=== PATIENT | male | born 1950 | race Caucasian/White ===

== ENCOUNTER → 2019-05-20 08:55 | Outpatient (CLI) | payer MEDICARE, OTHER, SELFPAY ==
--- NOTE | 2019-05-20 | DI.RAD.S_ITS ---
PROCEDURE: FL BARIUM SWALLOW INDICATIONS: Other dysphagia. COMPARISON: None. FINDINGS: Function: There are mild tertiary contractions with episodes of proximal escape. There is mild gastroesophageal reflux. There is normal transit of a calibrated barium tablet through the esophagus into the stomach. Morphology: Air-contrast images demonstrate normal mucosal morphology. Single contrast views show no esophageal strictures, extrinsic mass effects, or diverticula. Limited images of the stomach demonstrate normal appearance. IMPRESSION: Findings suggestive of mild esophageal dysmotility with mild gastroesophageal reflux. Clinical correlation recommended. Consider endoscopy if there is continued clinical concern. Dictated by: Tomi Ty M.D. on 05/20/2019 at 15:39 Approved by: Tomi Ty M.D. on 05/20/2019 at 15:41
== END ==
PROVIDERS: PCP Family Medicine; Visit Provider Otolaryngology
DX: R13.19 Other dysphagia (principal); K21.9 Gastro-esophageal reflux disease without esophagitis; R49.0 Dysphonia
CPT/HCPCS: 74220

== ENCOUNTER → 2020-07-12 09:06 | Outpatient (CLI) | payer MEDICARE, OTHER, SELFPAY ==
[2020-07-13 20:14] LABS: COVID19 Sendout Not Detected (Not Detect)
== END ==
PROVIDERS: PCP Family Medicine; Visit Provider Physician Assistant
DX: Z11.59 Encounter for screening for other viral diseases (principal)
CPT/HCPCS: 87635

== ENCOUNTER 2020-07-15 08:44 | Day surgery (SDC) | payer MEDICARE, OTHER, SELFPAY ==
--- NOTE | 2020-07-15 | PATH_ITS ---
[facility] Accession Number: [id number] . 01 Material submitted: . PART A: colon - TRANSVERSE COLON POLYP PART B: colon - CECAL COLON POLYP PART C: colon - ASCENDING COLON POLYP . 01 Clinical history: . SDC . 02 Diagnosis: A. Transverse Colon, Polyp: Tubular adenoma. . B. Cecum, Polyp: Tubular adenoma. Additional step sections examined. . C. Ascending Colon, Polyp: Fragments of sessile serrated adenoma and fragments of tubular adenoma; please see comment. Additional step sections examined. MRV 07/21/2020 1313 Local . 02 Comment: C. Sections are of multiple distinct fragments of sessile serrated adenoma and tubular adenoma. No cytologic dysplasia is seen in the serrated fragments. These findings are suggestive of sampling of distinct adjacent lesions, but the possibility of a sessile serrated adenoma with low-grade cytologic dysplasia cannot be entirely excluded. Correlation with clinical and endoscopic findings are required to make this distinction. . 02 Electronically signed: . Gopi Elizabeth MD, PhD, Pathologist NPI- [id number] . 01 Gross description: . A. Received in formalin, labeled transverse colon polyp, and consists of two robbins fragments of soft tissue measuring 0.5 x 0.4 x 0.3 cm in aggregate. The specimen is entirely submitted in cassette A1. B. Received in formalin, labeled cecal polyp, and consists of two robbins fragments of soft tissue measuring 0.5 x 0.4 x 0.3 cm in aggregate. The specimen is entirely submitted in cassette B1. C. Received in formalin, labeled ascending colon polyp, and consists of multiple robbins-pink fragments of soft tissue measuring 1.2 x 1.0 x 0.3 cm in aggregate. The specimen is entirely submitted in cassette C1. ([id number]) /MRV 07/16/2020 1547 Local . 02 Pathologist provided ICD-10: D12.0, D12.2, D12.3 . 02 CPT . 959396, 305390, 925407 Performed at: 01 [facility] [address] [id number] MD Reinaldo Leahy MD Phone: [phone] Performed at: 02 [facility] [address] [place] [id number] MD Autumn Cooper MD Phone: [phone]
--- NOTE | 2020-07-15 08:54 | PM.OP.ENDO ---
Operative Date/Time/Diagnoses Date of procedure: 07/15/20 Time of procedure: 08:28 Procedure Notes Procedure in detail: Surgeon: Merline Godinez DO Procedure: Colonoscopy with polypectomy Preoperative diagnosis: 1. History of diverticulitis 2. Screening colonoscopy Postoperative diagnosis: 1. 7 mm cecal polyp 2. 5 mm ascending colon 3. 7 mm sigmoid polyp 4. Scattered diverticulosis throughout the entire colon 5. Grade 1 internal hemorrhoids Medications: Conscious sedation using 4 mg IV of Midazolam and 125 mcg IV of Fentanyl Preanesthesia Assessment An H and P was performed/updated and the Px?s ASA class is 2. The procedure was discussed in detail with the patient. The potential risks and complications including infection, bleeding, missed lesions, perforation, need for surgery in case of perforation, prolonged hospital stay, and were explained. A brief question and answer period was allotted and once all questions were answered, informed consent was obtained. The patient was brought back to the procedure room and placed on standard monitoring. The patient?s vital signs were monitored continuously throughout the entire procedure. Prior to starting, a timeout was performed to confirm the patient?s identity, allergies, medications, and procedure. Procedure in detail The patient was placed in left lateral decubitus position and once adequate sedation was obtained a MIGUEL ÁNGEL was performed. The digital rectal examination did not reveal any palpable lesions. The tip of the colonoscope was placed in the anal canal and advanced without difficulty all the way to the cecum which was identified by the appendiceal orifice and the ileocecal valve. Careful examination of all armstrong of the colon was performed with irrigation of any residual stool. Second pass evaluation of the ascending colon was completed. 7 mm polyp in the cecum removed with cold snare, 5 mm polyp in the ascending colon removed with cold snare, 7 mm polyp in the sigmoid colon removed with cold snare. Scattered diverticulosis noted throughout the entire colon with greatest concentration in the sigmoid colon. Grade 1 internal hemorrhoids were noted on retroflexion. The patient tolerated the procedure well and will be brought back to the recovery area to be discharged once criteria are met. The prep was judged to be good/excellent and adequate to identify polyps less than 5 mm. The withdrawal time was 9min. The total physician intraservice time was 20min. Complications There were no complications and estimated blood loss was minimal. Recommendations: Resume previous diet -high-fiber diet Continue outPx medications Follow up pathology results Repeat colonoscopy based on pathology results An emergency contact number was given to the patient for any complications related to the procedure
[2020-07-15 09:11] VITALS: BP 153/70; PULSE 51; RESP 16; TEMP 36.8; O2SAT 96; BMI 37.2
--- NOTE | 2020-07-15 10:16 | PM.HP.1 ---
History of Present Illness History of Present Illness Date Patient Seen: 07/15/20 Time Patient Seen: 10:16 Chief complaint: SDC Narrative: Patient is a very pleasant 69-year-old male who presented for colonoscopy. He was last evaluated on June 11, 2020 denies any changes to his medications or medical history since that time. He does have a personal history of colon polyps and is due for surveillance. Patient History Family & Social History Social History: household members spouse Tobacco & Substance use: Smoking Status Never smoker alcohol intake former Substance Use Type does not use Meds Home Medications and Allergies Home Medications Medication Instructions Recorded Confirmed Type chromium picolinate 200 mcg PO Q DAY #0 09/13/17 07/15/20 History levothyroxine [Synthroid] 125 mcg PO QAM #0 09/13/17 07/15/20 History magnesium citrate 1.7 gm PO Q DAY #0 09/13/17 07/15/20 History multivitamin [Multiple Vitamins] 1 tab PO QDAY #0 09/13/17 07/15/20 History omega 0-yre-vth-fish oil [Fish Oil] 1,200 mg PO Q DAY #0 09/13/17 07/15/20 History amlodipine 10 mg PO DAILY 07/15/20 07/15/20 History aspirin 81 mg PO DAILY 07/15/20 07/15/20 History losartan 100 mg PO DAILY 07/15/20 07/15/20 History Allergies Allergy/AdvReac Type Severity Reaction Status Date / Time No Known Drug Allergies Allergy Verified 07/15/20 08:04 Review of Systems Review of Systems ROS: Yes All systems reviewed with the patient and are negative except as otherwise documented Exam Vital Signs (past 8 hours): - 07/15/20 09:11 Temperature 98.2 F Pulse Rate 51 L Respiratory Rate 16 Blood Pressure 153/70 H Pulse Oximetry 96 Oxygen Delivery Method Room Air Const General: cooperative, healthy appearing, comfortable, well developed and well groomed Nutritional Appearance: average body habitus HENMT Head: normocephalic and atraumatic Resp Effort & Inspection: normal respiratory effort and able to speak in complete sentences Auscultation: clear to auscultation bilaterally Cardio Rate: regular rate Rhythm: regular rhythm Heart Sounds: S1 normal and S2 normal GI Palpation: soft and No tender Auscultation: normal bowel sounds Extrem Right lower extremity: no edema Left lower extremity: no edema Assessment & Plan Assessment & Plan narrative: 1. Personal history colon polyps Colonoscopy today, further recommendations to follow
[2020-07-15] MEDS: fentaNYL 250 MCG/5 ML INJ IV (10:19)
[2020-07-15] MEDS: MIDAZOLAM 5 MG/5 ML VIAL IV (10:19)
[2020-07-15 10:54] VITALS: BP 127/56; PULSE 52; RESP 19; TEMP 36.9; O2SAT 97
--- NOTE | 2020-07-15 10:55 | PM.OP.ENDO ---
Operative Date/Time/Diagnoses Date of procedure: 07/15/20 Time of procedure: 10:19 Procedure Notes Procedure in detail: Surgeon: Merline Godinez DO Procedure: Colonoscopy with polypectomy Preoperative diagnosis: 1. Personal history colon polyps Postoperative diagnosis: 1. 7 mm transverse colon 2. 3 mm polyp in the cecum 3. Three polyps ranging from 3-5 mm found in the ascending colon 4. Sigmoid diverticulosis 5. Grade 1 internal hemorrhoids Medications: Conscious sedation using 4 mg IV of Midazolam and 100 mcg IV of Fentanyl Preanesthesia Assessment An H and P was performed/updated and the Px?s ASA class is 2. The procedure was discussed in detail with the patient. The potential risks and complications including infection, bleeding, missed lesions, perforation, need for surgery in case of perforation, prolonged hospital stay, and were explained. A brief question and answer period was allotted and once all questions were answered, informed consent was obtained. The patient was brought back to the procedure room and placed on standard monitoring. The patient?s vital signs were monitored continuously throughout the entire procedure. Prior to starting, a timeout was performed to confirm the patient?s identity, allergies, medications, and procedure. Procedure in detail The patient was placed in left lateral decubitus position and once adequate sedation was obtained a MIGUEL ÁNGEL was performed. The digital rectal examination did not reveal any palpable lesions. The tip of the colonoscope was placed in the anal canal and advanced without difficulty all the way to the cecum which was identified by the appendiceal orifice and the ileocecal valve. Careful examination of all armstrong of the colon was performed with irrigation of any residual stool. Second pass of the ascending colon was completed. 7 mm transverse colon -removed with cold snare 3 mm polyp in the cecum -removed with Jumbo forceps Three polyps ranging from 3-5 mm found in the ascending colon -2 were removed with Jumbo forceps, 1 was removed with cold snare Sigmoid diverticulosis Grade 1 internal hemorrhoids The patient tolerated the procedure well and will be brought back to the recovery area to be discharged once criteria are met. The prep was judged to be good/excellent and adequate to identify polyps less than 5 mm. The withdrawal time was 14min. The total physician intraservice time was 28min. Complications There were no complications and estimated blood loss was minimal. Recommendations: Resume high-fiber diet Continue outPx medications Follow up pathology results Repeat colonoscopy will be determined after review of pathology report An emergency contact number was given to the patient for any complications related to the procedure
[2020-07-15 10:59] VITALS: BP 140/68; PULSE 53; RESP 16; O2SAT 98
[2020-07-15 11:04] VITALS: BP 125/65; PULSE 52; RESP 13; O2SAT 98
[2020-07-15 11:09] VITALS: BP 126/59; PULSE 46; RESP 18; TEMP 36.7; O2SAT 97
== END 2020-07-15 11:28 | disposition home or self-care (01) ==
PROVIDERS: PCP Family Medicine; Referring Provider Family Medicine; Visit Provider Student in an Organized Health Care Education/Training Program
PROC: 0DJD8ZZ Inspection of Lower Intestinal Tract, Via Natural or Artificial Opening Endoscopic (ICD-10-PCS; CPT 45378; principal; 2020-07-15 10:00)
DX: Z12.11 Encounter for screening for malignant neoplasm of colon (principal); Z86.010 Personal history of colon polyps; K57.30 Diverticulosis of large intestine without perforation or abscess without bleeding; K64.0 First degree hemorrhoids; D12.0 Benign neoplasm of cecum; D12.2 Benign neoplasm of ascending colon; D12.3 Benign neoplasm of transverse colon
CPT/HCPCS: 45385; 45380; J2250; J3010